=== PATIENT | male | born 1940 | race Caucasian/White ===

== ENCOUNTER → 2019-05-04 16:26 | Outpatient (CLI) | payer MEDICARE, OTHER, SELFPAY ==
--- NOTE | 2019-05-04 16:29 | CT_ITS ---
STUDY: CT ABDOMEN AND PELVIS WITH AND WITHOUT CONTRAST REASON FOR EXAM: Male, 79 years old. Microhematuria. History of West Nile virus and dementia. RADIATION DOSAGE (If Supplied By Facility): CTDIvol = ( 14.06 ) mGy, DLP = ( 989.89 ) mGycm TECHNIQUE: Transaxial images were obtained from the dome of the diaphragm to the symphysis pubis without oral contrast. 100CC IV Isovue 300 was administered. Sagittal and coronal images were reconstructed. Individualized dose optimization techniques were used for this CT. COMPARISON: None. FINDINGS: The visualized lung bases are unremarkable. The heart size is normal. There are atherosclerotic calcifications in the coronary arteries as well as calcification in the mitral valve annulus. Normal liver. The patent portal vein diameter is 11 mm. There are surgical clips in the gallbladder fossa consistent with a prior cholecystectomy. There is extrahepatic and mild central intrahepatic bile duct ectasia. The common bile duct in the head of the pancreas is 8 mm in diameter, while the common bile duct near the adwoa hepatis is approximately 12 mm. Normal spleen. Normal pancreas. Normal bilateral adrenal glands. Normal right kidney. Normal left kidney. No nephrolithiasis or hydronephrosis. Normal visualized stomach. Normal small intestine. There are multiple colonic diverticula consistent with diverticulosis. There are surgical clips and possible sutures in the region of the appendix consistent with a prior appendectomy. There is partially calcified diffuse atherosclerotic plaquing of the thoracoabdominal aorta, with 2.45 x 2.35 cm diameter ectasia at its distal third. Calcific atherosclerotic plaquing also seen in the proximal iliac and visualized femoral arteries. Normal inferior vena cava. Normal retroperitoneum. Normal urinary bladder. Normal visualized prostate gland. Normal abdominal wall. There are multilevel degenerative changes of the lower thoracic and lumbar spine. There is degenerative osseous bridging across the superior aspect of the left sacroiliac joint. CT/CT Abd/Pelvis W/WO Contrast IMPRESSION: 1. No demonstrated nephrolithiasis or hydronephrosis. The urinary bladder is unremarkable. 2. Partially calcified diffuse atherosclerotic plaquing present. There is 2.45 cm fusiform ectasia of the distal abdominal aorta. 3. Prior cholecystectomy. There is mild intra and extra hepatic bile duct ectasia. 4. Colonic diverticulosis without acute diverticulitis. No sign of bowel obstruction. Patient has undergone prior appendectomy. Electronically Signed: Jose Peoples MD at 20:49 EDT , Service support ,
[2019-05-04 16:51] LABS: CREATININE FINGERSTICK 1.2 mg/dL (0.70-1.30)
== END ==
PROVIDERS: Family Provider Family Medicine; PCP Family Medicine; Referring Provider Nurse Practitioner Adult Health
DX: R31.29 Other microscopic hematuria (principal)
CPT/HCPCS: 74178; Q9967